=== PATIENT | female | born 1965 | race Caucasian/White ===

== ENCOUNTER 2016-08-30 21:29 | Emergency (ER) ==
[2016-08-30] MEDS ORDERED: PROTONIX IV ONE (21:34)
[2016-08-30] MEDS ORDERED: SODIUM CHLORIDE 0.9% INJ ONE (21:34)
[2016-08-30] MEDS ORDERED: ZOFRAN IV ONE (21:34)
[2016-08-30] MEDS ORDERED: MORPHINE IV ONE (21:34)
[2016-08-30 22:08] LABS: MANUAL DIFF NEEDED? NO
[2016-08-30 22:11] LABS: BASO% 0.8 % (0.0-0.8); EOS# 0.05 X1000 (0.0-0.7); EOS% 0.8 % (0.0-10.0); HEMATOCRIT 32.8 % (37.0-47.0); HEMOGLOBIN 10.1 g/dL (12.0-16.0); LYMPH# 2.14 X1000 (1.2-3.4); LYMPH% 32.3 % (20.5-51.1); MCH 23.3 PG (27-31); MCHC 30.8 g/dL (33-37); MCV 75.6 FL (81-99); MONO# 0.65 X1000 (0.11-0.59); MONO% 9.8 % (1.7-9.3); MPV 9.8 FL (7.4-10.4); NEUT% 56.3 % (42.2-75.2); PLT 301 X1000 (130-400); RBC 4.34 XMIL (4.2-5.4)
--- NOTE | 2016-08-30 22:12 | ED EKG INTERP ---
EKG Interpretation - EKG Time of EKG reading by physician:: 22:12 EKG Read and Signed by:: Erwin Dial Rate: 113 Rhythm: sinus tachy QRS: normal DE Interval: normal ST Wave: normal Attestation - Scribe Verification/Attestation Scribe:: Liliya Pugh Acting as Scribe for:: Erwin Dial Scribe documention review:: This chart was documented by a scribe and accurately reflects the service the provider performed and the decisions made by the provider.
[2016-08-30 22:23] LABS: INR 0.98; PROTIME 10.4 Seconds (9.2-11.7); PTT 25.8 Seconds (22.0-36.0)
[2016-08-30 22:37] LABS: AGAP 14; ALBUMIN 3.6 g/dL (3.5-5.0); ALKALINE PHOSPHATASE 115 U/L (32-104); BUN 5 mg/dL (8-22); CALCIUM 8.2 mg/dL (8.8-10.2); CHLORIDE 100 mmol/L (98-107); CK PROFILE 63 U/L (24-173); COSMO 275; GOT 23 U/L (10-30); GPT 14 U/L (10-36); LIPASE 33 U/L (13-60); MAGNESIUM 2.2 mg/dL (1.5-2.7); SODIUM 139 mmol/L (136-145); TCO2 25 mmol/L (25-35); TOTAL PROTEIN 7.7 g/dL (6.3-8.3)
[2016-08-30 22:39] LABS: UR AMPHETAMINES QUAL NONE DETECTED (NONE DETECT); UR BARBITUATES QUAL NONE DETECTED (NONE DETECT); UR BENZODIAZEPIN QUAL NONE DETECTED (NONE DETECT); UR CANNABINOIDS QUAL NONE DETECTED (NONE DETECT); UR COCAINE QUAL NONE DETECTED (NONE DETECT); UR METHADONE QUAL NONE DETECTED (NONE DETECT); UR OPIATES QUAL NONE DETECTED (NONE DETECT); UR OXYCODONE QUAL NONE DETECTED (NONE DETECT); UR PCP QUAL NONE DETECTED (NONE DETECT)
[2016-08-30] MEDS ORDERED: M.V.I.-12 10 ML, FOLIC ACID 1 MG, MAGNESIUM SULFATE 1 GM, THIAMINE 100 MG in NS 1,000 ML IV ONE (22:53)
--- NOTE | 2016-08-30 23:06 | PROVIDER DOCUMENTATION ---
HPI-Chest Pain - General Chief Complaint: Chest Pain Stated Complaint: cp Time Seen by Provider: 08/30/16 21:33 Source: patient Allergies/Adverse Reactions: Patient Allergies Allergy/AdvReac Type Severity Reaction Status Date / Time naproxen sodium * Allergy Severe ANAPHYLAXIS Verified 06/27/16 20:31 [From Aleve] Sulfa (Sulfonamide Allergy Severe ITCHING Verified 06/27/16 20:31 Antibiotics) [Sulfa(Sulfonamide Antibiotics)] Home Medications: Multivitamin [Daily Vitamin] 1 each PO DAILY 11/13/14 - History of Present Illness-CP Nature of Presenting Problem: 50 y/o f presents to the ed with chest pain with an onset of this evening. upon arrival pt pain was more in the upper gastric region. pt is obviously intoxicated upon arrival but denies drinking. Location: reports: abdomen Chest Pain Radiation: reports: no radiation Quality of Pain: reports: cramping Severity in ED: moderate Onset/Duration: this evening Timing: still present Nitro Today/Relief: no nitro taken today Aspirin Treatment Today: no aspirin today Prior Chest Pain/Cardiac Workup: reports: no prior chest pain Similar Symptoms Previously?: No Recently Seen Here or By Another Healthcare Provider: No Review of Systems - Adult - REVIEW OF SYSTEMS - ADULT Constitutional: denies: chills, fever Gastrointestinal: reports: abdominal pain. denies: vomiting Psychiatric: reports: alcohol/drug dependence. denies: anxiety Past History - Adult - PAST MEDICAL HISTORY-ADULT Review of Records: reports: Old Records Reviewed, Nursing Assessment Review, Medications Reviewed Major Childhood Illnesses: reports: denies history Respiratory: reports: asthma, COPD Gastrointestinal: reports: GERD, ulcer Other Conditions: reports: other (DVT) - PRIOR SURGERIES/PROCEDURES Surgical/Procedure History: reports: cholecystectomy, , joint replacement (Total knee replacement), gastric bypass - IMMUNIZATION STATUS Childhood Immunizations: See Nurse Assessment Flu Vaccine: See Nurse Assessment - FAMILY HISTORY Family History: reviewed, not pertinent - SOCIAL HISTORY Smoking: cigarettes, less than 1 pack/day Provider spent 3-5 mins advising pt. on dangers of tobacco.: Discussed manners to quit use, and f/u contacts for add'l counseling. Substance Use: alcohol Alcohol Use Frequency: 5-6 times a week Physical Exam-General - PHYSICAL EXAM-ADULT Initial Vital Signs Reviewed: Yes - CONSTITUTIONAL General Appearance: alert, no apparent distress - EYES Eyes: PERRL/EOMI, pink conjunctivae, fundi clear, no AV nicking - HEAD, EARS, NOSE, MOUTH & THROAT HENMT: normocephalic/atraumatic, moist mucous membranes, normal ENT inspection - NECK Neck: non-tender, full range of motion, supple - RESPIRATORY Respiratory: chest non-tender, lungs clear, normal breath sounds - CARDIOVASCULAR Cardiovascular: normal peripheral pulses, regular rate, rhythm - GASTROINTESTINAL (ABDOMEN) Abdominal Exam: normal bowel sounds, tenderness (epigastric) - MUSCULOSKELETAL Back Exam: normal inspection - SKIN Integumentary: normal color, normal turgor, warm/dry - PSYCHIATRIC Psych/Mental Status: normal mood/affect, normal thought content, normal thought process, oriented x 3 Progress - PLAN OF CARE/RESULTS Progress/Plan/Lab Results: plan of care: labs, imaging Laboratory Tests 08/30/16 08/30/16 08/30/16 21:50 21:50 21:50 WBC 6.62 RBC 4.34 Hgb 10.1 L Hct 32.8 L MCV 75.6 L MCH 23.3 L MCHC 30.8 L RDW Std Deviation 18.7 H Plt Count 301 MPV 9.8 Neut % (Auto) 56.3 Lymph % (Auto) 32.3 Johnston % (Auto) 9.8 H Eos % (Auto) 0.8 Baso % (Auto) 0.8 Neut # (Auto) 3.73 Lymph # (Auto) 2.14 Johnston # (Auto) 0.65 H Eos # (Auto) 0.05 Baso # (Auto) 0.05 PT INR PTT (Actin FS) Sodium 139 Potassium 4.0 Chloride 100 Carbon Dioxide 25 Anion Gap 14 BUN 5 L Creatinine 0.5 Estimated GFR/1.73 m2 > 60 BUN/Creatinine Ratio 10 Glucose 101 Calculated Osmolality 275 Calcium 8.2 L Magnesium 2.2 Total Bilirubin 0.30 AST 23 ALT 14 Alkaline Phosphatase 115 H Creatine Kinase 63 Troponin T [id number]-H-Aczjekphsrj Pept 178 Total Protein 7.7 Albumin 3.6 Globulin 4.1 Albumin/Globulin Ratio 0.9 Lipase 33 Urine Source Urine Color Urine Turbidity Urine pH Ur Specific [place] Urine Protein Ur Glucose (Stick) Ur Ketones (Stick) Urine Blood Urine Nitrite Urine Bilirubin Urobilinogen Dipstick Urine Leukocytes Urine Opiates Screen Ur Oxycodone Screen Ur Methadone, Qual Ur Barbiturates Screen Ur Phencyclidine Scrn Ur Amphetamines Screen U Benzodiazepines Scrn Urine Cocaine Screen U Cannabinoids Screen Plasma/Serum Ethyl Alc 08/30/16 08/30/16 08/30/16 21:50 21:50 21:50 WBC RBC Hgb Hct MCV MCH MCHC RDW Std Deviation Plt Count MPV Neut % (Auto) Lymph % (Auto) Johnston % (Auto) Eos % (Auto) Baso % (Auto) Neut # (Auto) Lymph # (Auto) Johnston # (Auto) Eos # (Auto) Baso # (Auto) PT 10.4 INR 0.98 PTT (Actin FS) 25.8 Sodium Potassium Chloride Carbon Dioxide Anion Gap BUN Creatinine Estimated GFR/1.73 m2 BUN/Creatinine Ratio Glucose Calculated Osmolality Calcium Magnesium Total Bilirubin AST ALT Alkaline Phosphatase Creatine Kinase Troponin T < 0.010 Gfe-S-Vjndpvrmggy Pept Total Protein Albumin Globulin Albumin/Globulin Ratio Lipase Urine Source Urine Color Urine Turbidity Urine pH Ur Specific [place] Urine Protein Ur Glucose (Stick) Ur Ketones (Stick) Urine Blood Urine Nitrite Urine Bilirubin Urobilinogen Dipstick Urine Leukocytes Urine Opiates Screen Ur Oxycodone Screen Ur Methadone, Qual Ur Barbiturates Screen Ur Phencyclidine Scrn Ur Amphetamines Screen U Benzodiazepines Scrn Urine Cocaine Screen U Cannabinoids Screen Plasma/Serum Ethyl Alc 283 H 08/30/16 08/30/16 22:23 22:23 WBC RBC Hgb Hct MCV MCH MCHC RDW Std Deviation Plt Count MPV Neut % (Auto) Lymph % (Auto) [place] % (Auto) Eos % (Auto) Baso % (Auto) Neut # (Auto) Lymph # (Auto) Johnston # (Auto) Eos # (Auto) Baso # (Auto) PT INR PTT (Actin FS) Sodium Potassium Chloride Carbon Dioxide Anion Gap BUN Creatinine Estimated GFR/1.73 m2 BUN/Creatinine Ratio Glucose Calculated Osmolality Calcium Magnesium Total Bilirubin AST ALT Alkaline Phosphatase Creatine Kinase Troponin T Wdu-I-Vrjemficmur Pept Total Protein Albumin Globulin Albumin/Globulin Ratio Lipase Urine Source CLEAN CATCH Urine Color STRAW Urine Turbidity CLEAR Urine pH 6.0 Ur Specific [place] 1.002 Urine Protein NEGATIVE Ur Glucose (Stick) NEGATIVE Ur Ketones (Stick) NEGATIVE Urine Blood NEGATIVE Urine Nitrite NEGATIVE Urine Bilirubin NEGATIVE Urobilinogen Dipstick NORMAL Urine Leukocytes NEGATIVE Urine Opiates Screen NONE DETECTED Ur Oxycodone Screen NONE DETECTED Ur Methadone, Qual NONE DETECTED Ur Barbiturates Screen NONE DETECTED Ur Phencyclidine Scrn NONE DETECTED Ur Amphetamines Screen NONE DETECTED U Benzodiazepines Scrn NONE DETECTED Urine Cocaine Screen NONE DETECTED U Cannabinoids Screen NONE DETECTED Plasma/Serum Ethyl Alc Orders Category Date Time Status Cardiac Monitoring DIRECTED Care 08/30/16 21:33 Active Saline Loc NOW Care 08/30/16 21:33 Active CHEST-2 VIEWS [RAD] Stat Exams 08/30/16 21:33 Taken ALCOHOL BLOOD Stat Lab 08/30/16 21:50 Completed CBC WITH ELECTRONIC DIFF [HEME] Stat Lab 08/30/16 21:50 Completed CK PROFILE [SP CHEM] Stat Lab 08/30/16 21:50 Completed COMPREHENSIVE METABOLIC PANEL [CHEM] Stat Lab 08/30/16 21:50 Completed D-DIMER [CHEM] Stat Lab 08/30/16 21:50 Stop Req LIPASE [CHEM] Stat Lab 08/30/16 21:50 Completed MAGNESIUM [CHEM] Stat Lab 08/30/16 21:50 Completed PRO B-NATRIURETIC PEPTIDE Stat Lab 08/30/16 21:50 Completed PROTIME WITH INR [COAG] Stat Lab 08/30/16 21:50 Completed PTT [COAG] Stat Lab 08/30/16 21:50 Completed TROPONIN T Stat Lab 08/30/16 21:50 Completed URINALYSIS W/POSS RFLX CULT [URINALYSIS] Stat Lab 08/30/16 22:23 Results URINE DRUG SCREEN Stat Lab 08/30/16 22:23 Completed Morphine Med 08/30/16 21:34 Discontinued 4 mg IV NOW ONE Mvi [M.v.i.-12] 10 ml Med 08/30/16 22:53 Active Folic Acid 1 mg Magnesium Sulfate 1 gm Thiamine 100 mg 0.9% Sodium Chloride Inj [Ns] 1,000 ml IV NOW Ondansetron [Zofran] Med 08/30/16 21:34 Discontinued 4 mg IV NOW ONE Pantoprazole [Protonix] Med 08/30/16 21:34 Discontinued 40 mg IV NOW ONE Sodium Chloride 0.9% Med 08/30/16 21:34 Discontinued 10 ml INJ NOW ONE EKG [EKG] Stat Ther 08/30/16 21:33 Ordered Vital Signs - 24 hr 08/30/16 21:30 Temperature 97.9 F Pulse Rate 94 H Respiratory 20 Rate Blood Pressure 125/89 O2 Sat by Pulse 98 Oximetry - XRAY 1 XRAY Study: Chest Impression: Normal XRAY Interpretation: normal Departure - Departure Time of Disposition Order: 23:02 DIAGNOSIS: Epigastric abdominal pain, Alcohol abuse Disposition: HOME 01 Certified Medical Emergency: Emergent Condition: Stable Additional Instructions: ED Follow Up Instructions: You have been treated by a care provider in the Emergency Department. These instructions are being provided to you so you can have an understanding of how to care for yourself upon discharge. Upon discharge from the Emergency Department, you are responsible for making arrangements for follow-up care by a physician of your choice. Take all prescribed medications as directed. Return to the Emergency Department immediately for any new or worsening symptoms. You may call the Physician Referral phone number at [phone] to obtain a list of Physicians who are taking new patients. Attestation - Scribe Verification/Attestation Scribe:: Liliya Pugh Acting as Scribe for:: Conner Edwards Scribe documention review:: This chart was documented by a scribe and accurately reflects the service the provider performed and the decisions made by the provider.
[2016-08-30 23:22] LABS: URINE SOURCE CLEAN CATCH
[2016-08-30 23:24] LABS: BILIRUBIN URINE NEGATIVE (NEGATIVE); BLOOD URINE NEGATIVE (NEGATIVE); CLARITY CLEAR (CLEAR); COLOR YELLOW; GLUCOSE URINE NEGATIVE (NEGATIVE); LEUKOCYTES URINE NEGATIVE (NEGATIVE); NITRITE URINE NEGATIVE (NEGATIVE); PROTEIN URINE NEGATIVE (NEGATIVE); SP GRAVITY URINE <= 1.005; UROBILINOGEN URINE 0.2 EU/dL (0.2-1.0)
[2016-08-30 23:29] LABS: URINE CULTURE NEEDED? NO; URINE WBC <10 /HPF (<10)
[2016-08-31 00:16] VITALS: BP 127/77
--- NOTE | 2016-08-31 05:26 | EKG Report ---
Test Performed on : 08/30/2016 9:44:19 PM Test Reason : Chest Pain Blood Pressure : / mmHG Vent. Rate : 113 BPM Atrial Rate : 113 BPM P-R Int : 146 ms QRS Dur : 092 ms QT Int : 354 ms P-R-T Axes : 063 065 065 degrees QTc Int : 485 ms Sinus tachycardia. Otherwise normal ECG When compared with ECG of 20-AUG-2016 19:27, No significant change was found Unconfirmed Result
--- NOTE | 2016-08-31 08:04 | Diag Imaging Result Document ---
PROCEDURE NAME: CHEST-2 VIEWS - 08/30/2016 AP UPRIGHT CHEST AND LATERAL: FINDINGS: Compared to 08/20/2016, there has been clearing of the right lower lobe opacity present previously. Otherwise, there has been no significant change. IMPRESSION: Improved right lower lobe opacity.
== END 2016-08-31 00:49 | disposition home or self-care (01) ==
LOC: EDBD → ED 21:29
DX: R10.13 Epigastric pain (principal); F10.10 Alcohol abuse, uncomplicated; R07.89 Other chest pain; R10.10 Upper abdominal pain, unspecified; R10.816 Epigastric abdominal tenderness; J44.9 Chronic obstructive pulmonary disease, unspecified; F17.210 Nicotine dependence, cigarettes, uncomplicated; Z71.6 Tobacco abuse counseling; Z86.718 Personal history of other venous thrombosis and embolism; Z96.659 Presence of unspecified artificial knee joint; Z98.84 Bariatric surgery status
CPT/HCPCS: 36415; 71020; 80053; 81001; 82550; 83690; 83735; 83880; 84484; 85025; 85379; 85610; 85730; 93005; 96365; 96375; C9113; G0480; J2270; J2405; J3411; J3475; J7030; S0164